=== PATIENT | male | born 1970 ===

== ENCOUNTER 2022-01-24 05:08 | Emergency (ER) | payer SELFPAY ==
[2022-01-24] MEDS ORDERED: Ketorolac 30 MG/ML SDV IM ONE (05:37)
[2022-01-24] MEDS ORDERED: Ondansetron 4 MG Tab.DIS PO ONE (05:45)
[2022-01-24 06:11] LABS: CORONAVIRUS COVID-19 NAA NEGATIVE (NEGATIVE); INFLUENZA A NAA NEGATIVE (NEGATIVE); INFLUENZA B NAA NEGATIVE (NEGATIVE)
[2022-01-24] MEDS ORDERED: predniSONE 20 MG Tab PO ONE (06:14)
[2022-01-24] MEDS ORDERED: Amoxicillin/Clavulanate K 875-125 MG Tab PO STA (06:14)
[2022-01-24] MEDS ORDERED: Azithromycin 250 MG Tab PO STA (06:14)
== END 2022-01-24 06:34 | disposition home or self-care (01) ==
LOC: MW.ED 05:08
DX: J01.90 Acute sinusitis, unspecified (principal); B96.89 Other specified bacterial agents as the cause of diseases classified elsewhere; J18.9 Pneumonia, unspecified organism; Z20.822 Contact with and (suspected) exposure to COVID-19
CPT/HCPCS: 0240U; 96372; 99284; A9270; J1885; 99283

== ENCOUNTER 2024-11-09 09:05 | Emergency (ER) | payer SELFPAY ==
[2024-11-09 10:03] LABS: BASOPHILS ABSOLUTE AUTO 0.02 K/uL (0.00-0.20); BASOPHILS PERCENT AUTO 0.4 % (0.0-1.0); EOSINOPHILS ABSOLUTE AUTO 0.14 K/uL (0.00-0.45); EOSINOPHILS PERCENT AUTO 2.8 % (0.0-6.0); HEMATOCRIT 43.6 % (42.0-52.0); HEMOGLOBIN 15.1 g/dL (14.0-18.0); IMMATURE GRAN ABSOLUTE AUTO 0.02 K/uL (0.00-0.05); IMMATURE GRAN PERCENT AUTO 0.4 % (0.0-0.4); LYMPHOCYTES ABSOLUTE AUTO 2.27 K/uL (1.00-4.80); LYMPHOCYTES PERCENT AUTO 45.1 % (24.0-44.0); MEAN CORPUSCULAR HEMOGLOBIN 32.5 pg (28.0-32.0); MEAN CORPUSCULAR HGB CONC 34.6 g/dL (32.0-36.0); MEAN CORPUSCULAR VOLUME 93.8 fL (83.0-99.0); MEAN PLATELET VOLUME 10.2 fL (9.4-12.4); MONOCYTES ABSOLUTE AUTO 0.47 K/uL (0.00-0.80); MONOCYTES PERCENT AUTO 9.3 % (0.0-8.0); NEUTROPHILS ABSOLUTE AUTO 2.11 K/uL (1.80-7.70); PLATELET COUNT,PLT 162 K/uL (150-400); RED BLOOD CELL COUNT 4.65 M/uL (4.52-5.90); WHITE BLOOD CELL COUNT,WBC 5.03 K/uL (3.9-11.3)
[2024-11-09] MEDS ORDERED: Sodium Chloride 0.9% 10 ML Syringe FLUSH PRN (10:03)
[2024-11-09] MEDS ORDERED: Sodium Chloride 0.9% 20 ML SDV IV PRN (10:03)
[2024-11-09] MEDS ORDERED: Sodium Chloride 0.9% 2.5 ML Syringe FLUSH PRN (10:03)
[2024-11-09 10:41] LABS: A/G RATIO 1.1 (0.9-1.6); ALANINE AMINOTRANSFERASE,ALT 31 IU/L (14-63); ALBUMIN 3.5 g/dL (3.4-5.0); ALKALINE PHOSPHATASE 77 U/L (46-116); ASPARTATE AMNIOTRANSFERASE,AST 21 IU/L (15-37); BILIRUBIN TOTAL 0.7 mg/dL (0.2-1.0); BLOOD UREA NITROGEN,BUN 13 mg/dL (7.0-18.0); CARBON DIOXIDE,CO2 24.4 mmol/L (21.0-32.0); CHLORIDE,CL 107 mmol/L (98-107); CREATINE KINASE,CK 39 U/L (26-308); CREATININE 1.1 mg/dL (0.8-1.3); EST CRCL DRUG DOSING (CG) 84.26 mL/min; GLUCOSE RANDOM 115 mg/dL (74-106); PRO B-TYPE NATRIUR PEPT,BNPPRO 19 pg/mL (0-125); PROTEIN TOTAL,TP 6.7 g/dL (6.4-8.2); SODIUM,NA 141 mmol/L (136-148)
[2024-11-09 10:44] LABS: ESTIMATED GFR 80 mL/min (>60)
[2024-11-09 11:37] LABS: D-DIMER QUANTITATIVE 0.19 mg/L FEU (0.00-0.50); INR 1.02 (0.86-1.11)
== END 2024-11-09 14:23 ==
LOC: MW.ED 09:05
DX: R55 Syncope and collapse (principal); Z79.51 Long term (current) use of inhaled steroids; Z79.899 Other long term (current) drug therapy
CPT/HCPCS: 36415; 70450; 70450-26; 71046; 71046-26; 72125; 72125-26; 80053; 82550; 83735; 83880; 84484; 85025; 85379; 85610; 85730; 87428-QW; 93005; 93010; 99284; 99285